=== PATIENT | male | born 1960 ===

== ENCOUNTER 2020-05-17 06:48 | Outpatient (REF) | payer MEDICAID, SELFPAY ==
--- NOTE | 2020-05-17 06:58 | XR_ITS ---
EXAMINATION: XR LUMBOSACRAL SPINE CLINICAL INFORMATION: Dorsalgia. COMPARISON: None TECHNIQUE: Three views of the lumbosacral spine. FINDINGS: There is normal lumbar segmentation with 5 nonrib-bearing lumbar vertebrae of normal height and normal lumbar lordosis. There is no lumbar vertebral compression, spondylolisthesis, destructive process. There are multilevel degenerative disc changes throughout the lower thoracic and lumbar spine. Disc narrowing is greatest at L3-L4 and L4-L5 along with endplate sclerosis and vertebral spurring, but involves all levels. There are anterior bridging osteophytes at multiple levels and some scattered lateral bridging osteophytes. There is variable facet degeneration, greatest L4-S1. The SI joints and visualized sacrum are unremarkable. XR/XR lumbar spine 2-3V IMPRESSION: 1. Diffuse multilevel degenerative disc and degenerative facet changes. 2. No lumbar vertebral compression, spondylolisthesis, destructive process.
== END 2020-05-17 06:49 | disposition home or self-care (01) ==
LOC: HO.XRAY 06:48
PROVIDERS: Visit Provider Internal Medicine
DX: M54.89 Other dorsalgia (principal)
CPT/HCPCS: 72100

== ENCOUNTER 2020-05-19 07:47 | Outpatient (REF) | payer MEDICAID, SELFPAY ==
[2020-05-19 08:25] LABS: Hematocrit 47.6 % (42-52); Hemoglobin 15.8 g/dl (14.0-18.0); Mean Corpuscular HGB Conc 33.2 g/dl (31.0-36.0); Mean Corpuscular Hemoglobin 29.4 pg (27.0-33.0); Mean Corpuscular Volume 88.5 fL (80-98); Mean Platelet Volume 10.8 fL (9.4-12.4); Platelet Count 196 X10*3/uL (160-400); Red Blood Count 5.38 X10*6/uL (4.60-5.80); Red Cell Distribution Width 13.1 % (11.0-16.0); White Blood Count 7.9 X10*3/uL (4.8-10.8)
[2020-05-19 08:58] LABS: Alanine Aminotransferase 19 U/L (0-40); Albumin Level 4.5 g/dL (3.5-5.0); Alkaline Phosphatase 69 U/L (39-117); Anion Gap 11 (12-20); Aspartate Amino Transferase 17 U/L (5-37); Bilirubin Total 0.5 mg/dL (0.0-1.0); Blood Urea Nitrogen 12 mg/dL (9-16); Calcium 8.5 mg/dL (8.4-10.2); Carbon Dioxide 30 mmol/L (22-29); Chloride 102 mmol/L (96-108); Cholesterol 223 mg/dL; Estimated Glomerular Filt Rate > 60; Glucose Fasting 98 mg/dL (60-99); HDL Cholesterol 68 mg/dL; LDL Cholesterol Calculated 143 mg/dl; Potassium 4.8 mmol/l (3.3-5.1); Sodium 138 mmol/L (135-145); Triglycerides 60 mg/dL
[2020-05-19 09:20] LABS: Prostate Specific Antigen 1.29 ng/mL (<0.05-4.0)
== END 2020-05-19 07:48 | disposition home or self-care (01) ==
LOC: HO.LAB 07:47
PROVIDERS: PCP Internal Medicine; Visit Provider Internal Medicine
DX: I86.4 Gastric varices (principal); K64.4 Residual hemorrhoidal skin tags; Z87.891 Personal history of nicotine dependence
CPT/HCPCS: 36415; 80053; 80061; 84153; 85027

== ENCOUNTER 2020-10-04 12:42 | Outpatient (REF) | payer MEDICAID, SELFPAY ==
--- NOTE | ~2020-10-04 | US_ITS ---
EXAMINATION: US SCROTUM CLINICAL INFORMATION: Scrotal varices. Cyst of epididymis. Right testicular pain. Left orchiectomy COMPARISON: Scrotal ultrasound 01/17/2016 and 04/29/2013. TECHNIQUE: A sonogram of the scrotum was performed assessing prince-scale appearance and color Doppler flow. Spectral Doppler analysis of the arterial and venous flow were performed in the testes bilaterally. FINDINGS: RIGHT: Right testicle measures 4.8 x 2.3 x 3.6 cm, volume 20.2 mL. There is a small anechoic cyst in lower pole right testes measuring 0.2 x 0.3 x 0.2 cm. No focal testicular parenchymal lesions are visualized. Spectral Doppler analysis of the arterial and venous flow is normal in the right testis. Right epididymal head is normal. There are 2 anechoic cysts epididymal cyst seen. The measured 2.5 x 2.5 x 2.6 cm and appears slightly echogenic, complex. A smaller cyst measures 1.4 x 2.0 x 1.7 cm. No right hydrocele or varicocele is seen. Right epididymal Doppler flow is normal. US/US scrotum IMPRESSION: Status post left orchiectomy. Small cyst lower pole right testicle. Two right epididymal cysts.
== END 2020-10-04 12:43 | disposition home or self-care (01) ==
LOC: HO.US 12:42
PROVIDERS: PCP Internal Medicine; Visit Provider Internal Medicine
DX: I86.1 Scrotal varices (principal); N50.3 Cyst of epididymis; N50.811 Right testicular pain
CPT/HCPCS: 76870

== ENCOUNTER → 2020-10-24 12:38 | Outpatient (BNVA) | payer MEDICAID, SELFPAY | PROVIDERS: PCP Internal Medicine; Visit Provider Physician Assistant ==

== ENCOUNTER 2020-11-19 12:01 | Day surgery (SDC) | payer MEDICAID, SELFPAY ==
--- NOTE | 2020-11-15 13:30 | P.CONAN_ITS ---
Documented by User: Umu Reid 11/15/20 13:31 HPI - Anesthesia Eval Consult details Narrative: 60yo M for Upper Endoscopy and Colonoscopy [facility] Active Problems Active Problems: All Active Problems (Updated 10/24/20 @ 14:26 by Zina Levi PA-C) Acid reflux (Acute) Hemorrhoids (Acute) Encounter for screening colonoscopy (Acute) Past Medical History Medical History Acid reflux Surgical History Surgical History History of testicular surgery Hx of removal of testicle Hx of varicose vein ligation Social History Social History Household Members: Family Alcohol intake: never Smoking Status: Former smoker Years Smoked: 30 Smoking Quit Date: month and a half ago Use of substances other than those prescribed or required for medical reasons: No Are you DNR?: No Recently lost weight without trying: No Meds Allergies Allergy/AdvReac Type Severity Reaction Status Date / Time No Known Allergies Allergy Verified 10/24/20 12:39 Home Medications Medication Instructions Recorded Confirmed Last Taken Type omeprazole 20 mg capsule,delayed 20 mg PO DAILY cap 10/24/20 Unknown History release Exam Exam Date and Time: November 15, 2020 1330 Assessment and Plan Assessment Anesthesia Assessment: Chart Reviewed Documented by User: Sabrina Hudson 11/19/20 10:47 [facility] Past Medical History Medical History Acid reflux Family History Family history of problems with anesthesia: No Surgical History Surgical History History of testicular surgery Hx of removal of testicle Hx of varicose vein ligation History of Problems with Anesthesia: No Social History Social History Household Members: Family Alcohol intake: never Smoking Status: Former smoker Years Smoked: 30 Smoking Quit Date: month and a half ago Use of substances other than those prescribed or required for medical reasons: No Are you DNR?: No Recently lost weight without trying: No Meds Allergies Allergy/AdvReac Type Severity Reaction Status Date / Time No Known Allergies Allergy Verified 10/24/20 12:39 Home Medications Medication Instructions Recorded Confirmed Last Taken Type omeprazole 20 mg capsule,delayed 20 mg PO DAILY cap 10/24/20 Unknown History release Exam Height,Weight and Vital Signs: Vital Signs Temp Pulse Resp BP Pulse Ox 97.5 F 65 16 136/84 98 11/19/20 09:38 11/19/20 09:38 11/19/20 09:38 11/19/20 09:38 11/19/20 09:38 Airway Mallampati Class: III TM Dist: >3cm Neck ROM: Full Partial: Upper Loose/Missing/Broken Teeth: Yes Heart: RRR Lungs: CTAB Assessment and Plan Assessment Anesthesia Assessment: Anesthesia Plan Discussed and Chart Reviewed Final Anesthetic Review NPO: Yes ASA Class: II Final Preanesthetic Review: No Changes in Pt Med Stat, Meds/Allgs Chart Reviewed, Consent Obtained/Reviewed and Anes Risks/Benef Reviewed Patient Risk: Low Procedure Risk: Low Assessment/Block/Sedation in SS: Assess/Block/Sedation-SS Anesthetic Plan Anesthetic Plan: MAC: Disposition: Standard PACU
[2020-11-19 09:38] VITALS: BP 136/84; PULSE 65; RESP 16; TEMP 36.4; O2SAT 98; BMI 32.4
[2020-11-19] MEDS: Lactated Ringers 1,000 ML 100 ML IVCONT (09:54)
--- NOTE | 2020-11-19 10:05 | MHC.SHP ---
Pre-Procedural Eval Section B Chief Complaint: Screening, Acid Reflux Relevant Family History (Specify if Yes): No Relevant Social History: None (ex smoker) Present Medications: see Short Stay Collaborative assessment Medical History: Significant History (gerd) History of Previous Operations: Relevant previous surgery/procedure and date(s) (History of testicular surgery Hx of removal of testicle Hx of varicose vein ligation) Allergies: Allergies Allergy/AdvReac Type Severity Reaction Status Date / Time No Known Allergies Allergy Verified 10/24/20 12:39 Review of Systems Sugical H&P ROS: Negative: Constitution, Cardiovascular, Respiratory, Neurological, Psychiatric, Hem-Onc, Allergic/Immunologic, Gastrointestinal, Genitourinary, Musculoskeletal, Integumentary, Endocrine and Eyes/Ears/Nose/Throat Exam Surgical H&P Exam: Normal: HEENT, Normal: Heart, Normal: Lungs, Normal: Extremities, Normal: Abdomen, Normal: Skin and Normal: Neurological Plan Diagnosis/Plan: Unchanged I have reviewed the history and physical and performed a pertinent physical examination on my patient. No changes have occurred unless specified.
--- NOTE | 2020-11-19 10:06 | PM.OP ---
Brief Operative Note Date of Service: 11/19/20 Pre-op diagnosis: GERD, colo screen Post-op diagnosis: same Procedure: see op note Surgeon: John Hunt MD Anesthesia: MAC Was an Production Drilling Machine Operator used for this Procedure?: No Estimated blood loss (mL): 0 Condition: stable Disposition: PACU
--- NOTE | 2020-11-19 10:06 | W.PM.OPN ---
Operative Note Operative Note Date of Service: 11/19/20 Narrative: Operative Information Procedure Description: EGD, Colonoscopy FLEXIBLE TRANSORAL UPPER GASTROINTESTINAL ENDOSCOPY AND COLONOSCOPY PROCEDURE NOTE UPPER ENDOSCOPY Consent: Indications for the procedure and potential complications of bleeding, perforation, reaction to medications and missed diagnosis were discussed with the patient and informed consent was obtained. Instrument: Olympus GIF H 190 J mid size upper endoscope Monitoring: Vital signs and clinical assessment, continuous EKG monitoring, Pulse oximetry, Carbon Dioxide monitoring and blood pressure monitoring were done throughout the procedure. Procedure: The patient was placed in the left lateral decubitis position and pre-procedure medications were administered and a bite block was placed. The endoscope was inserted into the mouth and advanced under direct vision to the third part of duodenum. A careful inspection was made as the upper endoscope was withdrawn including a retroflexed examination of the proximal stomach; Findings and interventions are described below. Findings: Larynx:normal Esophagus: GE junction at 35 cm, diaphragm hiatus at 39 cm, 4 cm sliding hiatal hernia noted. La grade B esophagitis with erosion noted, as well as ridging and furrowing of esophagus, random esophageal bx taken as well as from GEJ Stomach: Patchy erythema. Biopsies were obtained. Grade 2 flap valve on retroflexed examination of the cardia. Duodenum: bulbar duodenitis, noted Intervention: Biopsies as noted above COLONOSCOPY Instrument: Olympus variable stiffness pediatric scope 190L Colonoscopy Monitoring: Vital signs and clinical assessment, continuous EKG monitoring, Pulse oximetry, Carbon Dioxide monitoring and blood pressure monitoring were done throughout the procedure. Colon withdrawal time was 12 minutes. Procedure: The patient was placed in the left lateral decubitis position and pre-procedure medications were administered. After a digital rectal examination of the ano-rectum, the video colonoscope was inserted into the rectum and advanced through the colon to the cecum/TI. The colonoscope was slowly withdrawn in a retrograde panoramic fashion and the colon mucosa was carefully examined including a retroflexed view of the rectum. Findings and interventions are described below. Procedure Difficulty:easy Findings: Terminal Ileum-normal Cecum:normal Ascending Colon: 6-8 mm sessile polyp removed with forceps Transverse Colon - 10 mm sessile polyp removed with cold snare Descending Colon:normal Sigmoid Colon: few small diverticula seen Rectum: Retroflexion with moderate sized internal hemorrhoids, grade II--8-10 mm sessile polyp removed with cold snare Anorectum - internal hemorrhoids seen at anal verge Colon preparation: [place] Bowel Preparation Scale Right colon; 2 Transverse colon: 2 Left colon; 2 (0 = Unprepared colon segment with mucosa not seen due to solid stool that cannot be cleared. 1 = Portion of mucosa of the colon segment seen, but other areas of the colon segment not well seen due to staining, residual stool and/or opaque liquid. 2 = Minor amount of residual staining, small fragments of stool and/or opaque liquid, but mucosa of colon segment seen well. 3 = Entire mucosa of colon segment seen well with no residual staining, small fragments of stool or opaque liquid) Impression and Post Procedure Diagnosis: Endoscopy Findings: hiatal hernia esophagitis gastritis duodenitis Colonoscopy Findings: polyps internal hemorrhoids diverticular disease Plan: Await Pathology results Repeat Colonoscopy in 5 years or earlier if clinically indicated High fiber diet leaflet avoid straining at stool, epsom salts and sitz bath, anusol supps or cream prn reflux precautions, check compliance with PPI Above findings were reviewed with the patient and relevant handouts were provided if indicated.
[2020-11-19 10:39] VITALS: BP 98/62; PULSE 93; RESP 12; TEMP 36.2; O2SAT 97
[2020-11-19 10:54] VITALS: BP 109/64; PULSE 88; RESP 18; O2SAT 98
== END 2020-11-19 12:07 | disposition home or self-care (01) ==
LOC: HO.SSS 12:02
PROVIDERS: PCP Internal Medicine; Visit Provider Internal Medicine Gastroenterology
PROC: (CPT 45385; principal; 2020-11-19 09:50)
DX: Z12.11 Encounter for screening for malignant neoplasm of colon (principal); D12.2 Benign neoplasm of ascending colon; D12.3 Benign neoplasm of transverse colon; D12.8 Benign neoplasm of rectum; K57.30 Diverticulosis of large intestine without perforation or abscess without bleeding; K64.1 Second degree hemorrhoids; K21.9 Gastro-esophageal reflux disease without esophagitis; K29.50 Unspecified chronic gastritis without bleeding; K20.80 Other esophagitis without bleeding; K29.80 Duodenitis without bleeding; K44.9 Diaphragmatic hernia without obstruction or gangrene
CPT/HCPCS: 45385; 45380; 43239; 88305; 88342

== ENCOUNTER 2021-01-30 09:40 | Outpatient (REF) | payer MEDICAID, SELFPAY ==
--- NOTE | ~2021-01-30 | XR_ITS ---
EXAMINATION: XR KNEE, LEFT CLINICAL INFORMATION: Unspecified injury left lower leg COMPARISON: None TECHNIQUE: AP and lateral views of the left knee. FINDINGS: There is no fracture dislocation or destructive process. No significant joint narrowing. No erosive change or chondrocalcinosis. The suprapatellar bursa is 4 mm, within normal. Hoffa's fat pad appears normal and the deep infrapatellar recess is preserved. There is spurring at the extensor mechanism, and insertion quadriceps and origin and insertion of patellar tendon. XR/XR knee LT 2V IMPRESSION: 1. Spurring quadriceps insertion patella and origin and insertion patella tendon. 2. No knee joint compartment narrowing or erosive change.
== END 2021-01-30 09:41 | disposition home or self-care (01) ==
LOC: HO.XRAY 09:40
PROVIDERS: Absent Provider Internal Medicine; PCP Internal Medicine; Visit Provider Emergency Medicine
DX: S89.92XA Unspecified injury of left lower leg, initial encounter (principal)
CPT/HCPCS: 73560

== ENCOUNTER 2021-02-07 05:29 | Outpatient (REF) | payer MEDICAID, SELFPAY ==
--- NOTE | ~2021-02-07 | XR_ITS ---
EXAMINATION: XR KNEES STANDING AP XR KNEE, LEFT CLINICAL INFORMATION: Knee pain COMPARISON: Radiographs left knee 01/30/2021, right knee 04/29/2013 TECHNIQUE: Standing AP view of both knees is performed. Axial patellar view of the left knee is also performed. FINDINGS: Left: There is mild narrowing medial knee joint compartment. No erosive change or chondrocalcinosis. There is normal bony mineralization. No destructive process. Axial view patella shows mild narrowing lateral patellofemoral joint with lateral patellar spurring and mild lateral tilting patella. Right: There is moderate narrowing medial knee joint compartment with associated marginal osteophytes from the medial femoral condyle and medial tibial plateau. No erosive change or chondrocalcinosis. No destructive process. There is again spurring from the medial femoral condyle in region of origin medial collateral ligament which may related to old MCL injury (Blaire striata). XR/XR knee standing BI IMPRESSION: 1. Narrowing medial knee joint compartments, greater on right. 2. Narrowing left lateral patellofemoral joint with mild lateral tilting. 3. Old spurring right medial femoral condyle in region of proximal MCL (Blaire striata).
--- NOTE | ~2021-02-07 | XR_ITS ---
EXAMINATION: XR KNEES STANDING AP XR KNEE, LEFT CLINICAL INFORMATION: Knee pain COMPARISON: Radiographs left knee 01/30/2021, right knee 04/29/2013 TECHNIQUE: Standing AP view of both knees is performed. Axial patellar view of the left knee is also performed. FINDINGS: Left: There is mild narrowing medial knee joint compartment. No erosive change or chondrocalcinosis. There is normal bony mineralization. No destructive process. Axial view patella shows mild narrowing lateral patellofemoral joint with lateral patellar spurring and mild lateral tilting patella. Right: There is moderate narrowing medial knee joint compartment with associated marginal osteophytes from the medial femoral condyle and medial tibial plateau. No erosive change or chondrocalcinosis. No destructive process. There is again spurring from the medial femoral condyle in region of origin medial collateral ligament which may related to old MCL injury (Blaire striata). XR/XR knee LT 2V IMPRESSION: 1. Narrowing medial knee joint compartments, greater on right. 2. Narrowing left lateral patellofemoral joint with mild lateral tilting. 3. Old spurring right medial femoral condyle in region of proximal MCL (Blaire striata).
== END 2021-02-07 05:30 | disposition home or self-care (01) ==
LOC: HO.HOSX 05:29
PROVIDERS: Visit Provider Physician Assistant
DX: M17.12 Unilateral primary osteoarthritis, left knee (principal)
CPT/HCPCS: 20610; 73560; 73565; 99202; J1040

== ENCOUNTER → 2021-09-16 12:47 | Outpatient (BNVA) | payer MEDICAID, SELFPAY | PROVIDERS: Visit Provider Physician Assistant | DX: M17.0 Bilateral primary osteoarthritis of knee (principal) | CPT/HCPCS: 20610; 99212; J1040 ==

== ENCOUNTER 2021-10-04 08:53 | Outpatient (REF) | payer MEDICAID, SELFPAY ==
--- NOTE | 2021-10-04 | PFT_ITS ---
FLOWS: FEV1 110% of predicted at 3.73 L. FVC 92% of predicted at 4.02 L. FEV1 to FVC ratio of 0.93. LUNG VOLUMES: Total lung capacity 95% of predicted at 6.38 L. Residual volume 100% of predicted at 2.13 L. Slow vital capacity 93% of predicted at 4.15 L. Expiratory reserve volume 28% of predicted at 0.36 L. Diffusion capacity is normal. IMPRESSION: No obstructive or restrictive ventilatory defect. No bronchodilator response. Decreased expiratory reserve volume suggests extrathoracic restriction, likely secondary to abdominal obesity. Steve Da Silva MD AP/MODL / [id number]
== END 2021-10-04 08:54 | disposition home or self-care (01) ==
LOC: HO.RESP 08:53
PROVIDERS: PCP Internal Medicine; Visit Provider Internal Medicine
DX: R06.02 Shortness of breath (principal); Z87.891 Personal history of nicotine dependence
CPT/HCPCS: 94060; 94727; 94729

== ENCOUNTER 2022-12-25 13:34 | Outpatient (REF) | payer MEDICAID, SELFPAY ==
--- NOTE | ~2022-12-25 | CT_ITS ---
EXAMINATION: CT ABDOMEN AND PELVIS WITH CONTRAST CLINICAL INFORMATION: Appendicitis COMPARISON: None available. TECHNIQUE: Multidetector volumetric images were obtained from the superior aspect of the liver through the pubic symphysis following administration 85 mL of Omnipaque 350 intravenous contrast. Sagittal and coronal reformatted images were obtained on the technologist's workstation. Oral contrast: No This CT examination was performed using dose optimization techniques as appropriate, variously including the following: *Automated exposure control *Adjustment of mA and/or kV according to patient size (this includes techniques or standardized protocols for targeted exams where dose is matched to indication/reason for exam; i.e. extremities or head) *Use of iterative reconstruction technique DLP: 624 mGy-cm FINDINGS: LUNG BASES: The visualized lung bases are unremarkable. LIVER, GALLBLADDER, AND BILIARY TREE: The liver is enlarged at 20.2 cm in cephalocaudad dimension with decreased attenuation consistent with hepatic steatosis. No focal hepatic lesion or biliary ductal dilatation is present. The gallbladder is unremarkable with no evidence of radiopaque gallstones, gallbladder wall thickening, or obvious pericholecystic inflammatory changes. PANCREAS: Unremarkable. SPLEEN: Unremarkable. ADRENAL GLANDS: Unremarkable. KIDNEYS AND URETERS: The kidneys are normal in size, shape, and attenuation. No hydronephrosis, hydroureter, or calculi seen. No perinephric stranding. BLADDER: Unremarkable. GASTROINTESTINAL TRACT: The small and large bowel are unremarkable aside from mild colonic diverticulosis without diverticulitis. The appendix is unremarkable and there is no evidence of appendicitis. ABDOMINAL WALL: There are bilateral inguinal hernias seen containing fat, right greater than left. LYMPH NODES: No retroperitoneal lymphadenopathy. VASCULAR: Minimal calcific atherosclerotic plaque without aneurysm. PELVIC VISCERA: The prostate and seminal vesicles are unremarkable. OSSEOUS STRUCTURES: Marked degenerative changes present in the lumbar spine from L2 through L5. No bony destructive lesions. CT/CT abdomen pelvis w IV con IMPRESSION: 1. A cause for the patient's right lower quadrant pain has not been found. The appendix is normal. 2. Incidental note made of enlarged fatty liver, colonic diverticulosis without diverticulitis and degenerative changes in the spine. Fleischner guidelines were followed.
[2022-12-25] MEDS: iohexoL 350 MG/ML 100 ML INFUS..BTL 85 ML IV (16:34)
[2022-12-25] MEDS: Barium Sulfate Oral (Berry) 450 ML ORAL.SUSP 900 ML PO (16:34)
== END 2022-12-25 13:35 | disposition home or self-care (01) ==
LOC: HO.CT 13:34
PROVIDERS: PCP Internal Medicine; Visit Provider Internal Medicine
DX: R19.09 Other intra-abdominal and pelvic swelling, mass and lump (principal)
CPT/HCPCS: 74177; Q9967

== ENCOUNTER 2023-01-16 07:24 | Emergency (ER) | payer MEDICAID, SELFPAY ==
[2023-01-16 07:27] VITALS: BP 140/80; PULSE 66; RESP 18; TEMP 36.5; O2SAT 97; BMI 36.0
--- NOTE | 2023-01-16 07:44 | ED.MALEGU ---
HPI - Male Genitourinary General Chief complaint: Urogenital-Male Stated complaint: pain in groin area Time Seen by Provider: 01/16/23 07:31 History of Present Illness HPI Narrative: Patient is a 62-year-old male with a history of testicular pain. Had a history of testicular torsion in [place]. Had surgery approximately 15 years ago the left testicle was removed. Patient is complaining of pain to the right testicle 4 months. Mag any better. Positive history of having hernia on that side. Patient denies any history of diabetes. Positive history of hypertension. No fever no chills no systemic complaints. Sexually active 1 partner. Not circumcised. No pain on urination. Patient is presenting ED for further evaluation. Patient already has had scheduled an appointment with surgery for possible inguinal hernia. He denies any nausea vomiting. No systemic complaints. Related Data Home Medications Medication Instructions Recorded Confirmed omeprazole 20 mg capsule,delayed 20 mg PO DAILY 10/24/20 release Previous Rx's Medication Instructions Recorded bisacodyl 5 mg tablet,delayed 10 mg PO ONCE colonoscopy prep 1 10/24/20 release (Dulcolax (bisacodyl)) day #2 tabs polyethylene glycol 3350 17 238 g PO ONCE 1 day #238 grams 10/24/20 gram/dose oral powder (Miralax) ibuprofen 800 mg tablet 800 mg PO Q8H PRN pain 30 days #90 02/07/21 tabs sulfamethoxazole 800 1 tab PO BID 14 days #28 tabs 01/16/23 mg-trimethoprim 160 mg tablet (Bactrim DS) Allergies Allergy/AdvReac Type Severity Reaction Status Date / Time No Known Allergies Allergy Verified 01/16/23 07:27 Review of Systems Review of Systems: No nausea no vomiting no systemic complaints Yes all other systems are reviewed and are negative [facility] Past Medical History Attestation statement: The following information was validated with the patient. Medical History Acid reflux Surgical History History of testicular surgery Hx of removal of testicle Hx of varicose vein ligation Social History Social History Household Members: Family Alcohol intake: never Years Smoked: 30 Advance Directives: No Current occupational status: disabled Current occupation: rt hand Physical Exam Vital Signs: Vital Signs: Last Vital Signs Temp 98.7 F 01/16/23 09:13 Pulse 52 01/16/23 09:13 Resp 16 01/16/23 09:13 BP 100/64 01/16/23 09:13 Pulse Ox 97 01/16/23 09:13 O2 Del Method Room Air 01/16/23 09:13 BMI result Body Mass Index 36.0 Appearance: Alert. Oriented X3. No acute distress. Eyes: Pupils equal, round and reactive to light. ENT: Pharynx normal. Neck: Normal inspection. Neck supple. No lymph nodes noted. No crepitus CVS: Normal heart rate and rhythm. Pulses normal. Normal S1 and S2 Respiratory: No respiratory distress. Breath sounds normal. No Wheezing. No rales Abdomen: Soft and nontender. No rigidity. No distention. good BS x4 Examination genitalia there is no gross tenderness on palpation of the right testicle. Cremasteric reflex intact. Positive inguinal hernia that was clearly reducible noted. No discharge on stripping of the penis Skin: Skin warm and dry. Normal skin color. Normal skin turgor. Extremities: No lower extremity edema. Neurovascular intact to all extremities. No Lacerations. No Rash Neuro: Oriented X 3. No motor deficit. No sensory deficit. Moving all extermities. No slurred speech Medications Administered Discontinued Medications Generic Name Dose Route Start Last Admin Trade Name Freq PRN Reason Stop Dose Admin Ibuprofen 400 mg 01/16/23 07:46 01/16/23 08:00 Ibuprofen 400 Mg Tablet PO 01/16/23 07:47 400 mg ONCE ONE Administration Medical Decision Making Medical Decision Making [facility] Narrative: Patient there. No acute distress. No nausea no vomiting. Hernia was clearly reducible. No signs of strangulated hernia. Patient has testicular pain. Ultrasound showed no evidence of torsion. There is a small cyst noted. Patient will require follow-up on an outpatient basis with Urology. Will start patient on antibiotics for possible orchitis. Patient is sexually active with 1 partner. Over the age of 45 less likely to be secondary to STD. Nevertheless GC chlamydia was sent. Will start patient on Bactrim. Differential Diagnosis Differential Diagnoses: The differential diagnosis associated with the presentation includes Testicular pain, hernia, torsion, orchitis Lab Data [facility] Lab Attestation statement: I reviewed the patient's lab results. 01/16/23 07:57 01/16/23 07:57 Labs: Lab Results 01/16/23 01/16/23 01/16/23 Range/Units 07:57 07:57 07:57 WBC 9.2 (4.8-10.8) X10*3/uL RBC 5.25 (4.60-5.80) X10*6/uL Hgb 15.2 (14.0-18.0) g/dl Hct 45.4 (42.0-52.0) % MCV 86.5 (80.0-98.0) fL MCH 29.0 (27.0-33.0) pg MCHC 33.5 (31.0-36.0) g/dl RDW 13.2 (11.0-16.0) % Plt Count 168 (160-400) X10*3/uL MPV 10.3 (9.4-12.4) fL Immature Gran % (Auto) 0.3 (0.0-0.4) % Neut % (Auto) 54.3 (45-73) % Lymph % (Auto) 38.1 (20-40) % [place] % (Auto) 4.9 (2-11) % Eos % (Auto) 1.7 (0-4) % Baso % (Auto) 0.7 (0-2) % Lymph # (Auto) 3.5 (1.2-4.9) X10*3/uL [place] # (Auto) 0.5 (0.1-1.2) X10*3/uL Eos # (Auto) 0.2 (0.0-0.4) X10*3/uL Baso # (Auto) 0.1 (0.0-0.2) X10*3/uL Abs Immat Gran (auto) 0.03 (0.00-0.03) X10*3/uL Absolute Neuts (auto) 5.0 (2.0-8.3) x10*3/uL Absolute Nucleated RBC 0.000 (0.0-0.012) X10*3/uL Nucleated RBC % (auto) 0.0 (0.0-0.2) /100WBC Sodium 140 (135-145) mmol/L Potassium 4.4 (3.3-5.1) mmol/L Chloride 107 (96-108) mmol/L Carbon Dioxide 24 (22-29) mmol/L Anion Gap 13 (12-20) BUN 16 (9-16) mg/dL Creatinine 1.22 (0.5-1.4) mg/dL Estim Creat Clear Calc 75.5 Estimated GFR > 60 Random Glucose 121 H (60-115) mg/dL Calcium 9.6 D (8.4-10.2) mg/dL Urine Color Yellow Urine Appearance Clear Urine pH 5.5 (5.0-9.0) Ur Specific [place] 1.020 (1.005-1.025) Urine Protein Negative (Neg-Trace) mg/dL Urine Glucose (UA) Negative (Negative) mg/dL Urine Ketones Negative (Negative) mg/dL Urine Blood Negative (Negative) Urine Nitrite Negative (Negative) Ur Leukocyte Esterase Negative (Negative) Urine RBC 0-2 (0-2) /HPF Urine WBC 0-5 (0-5) /HPF Ur Squamous Epith Cells 0-2 (0-2) /HPF Urine Bacteria None Seen (None Seen) Hyaline Casts 0-2 (0-2) /LPF Chlam trachomat DNA PCR (Not Detect.) N.gonorrhoeae DNA (PCR) (Not Detect.) 01/16/23 Range/Units 07:57 WBC (4.8-10.8) X10*3/uL RBC (4.60-5.80) X10*6/uL Hgb (14.0-18.0) g/dl Hct (42.0-52.0) % MCV (80.0-98.0) fL MCH (27.0-33.0) pg MCHC (31.0-36.0) g/dl RDW (11.0-16.0) % Plt Count (160-400) X10*3/uL MPV (9.4-12.4) fL Immature Gran % (Auto) (0.0-0.4) % Neut % (Auto) (45-73) % Lymph % (Auto) (20-40) % [place] % (Auto) (2-11) % Eos % (Auto) (0-4) % Baso % (Auto) (0-2) % Lymph # (Auto) (1.2-4.9) X10*3/uL [place] # (Auto) (0.1-1.2) X10*3/uL Eos # (Auto) (0.0-0.4) X10*3/uL Baso # (Auto) (0.0-0.2) X10*3/uL Abs Immat Gran (auto) (0.00-0.03) X10*3/uL Absolute Neuts (auto) (2.0-8.3) x10*3/uL Absolute Nucleated RBC (0.0-0.012) X10*3/uL Nucleated RBC % (auto) (0.0-0.2) /100WBC Sodium (135-145) mmol/L Potassium (3.3-5.1) mmol/L Chloride (96-108) mmol/L Carbon Dioxide (22-29) mmol/L Anion Gap (12-20) BUN (9-16) mg/dL Creatinine (0.5-1.4) mg/dL Estim Creat Clear Calc Estimated GFR Random Glucose (60-115) mg/dL Calcium (8.4-10.2) mg/dL Urine Color Urine Appearance Urine pH (5.0-9.0) Ur Specific [place] (1.005-1.025) Urine Protein (Neg-Trace) mg/dL Urine Glucose (UA) (Negative) mg/dL Urine Ketones (Negative) mg/dL Urine Blood (Negative) Urine Nitrite (Negative) Ur Leukocyte Esterase (Negative) Urine RBC (0-2) /HPF Urine WBC (0-5) /HPF Ur Squamous Epith Cells (0-2) /HPF Urine Bacteria (None Seen) Hyaline Casts (0-2) /LPF Chlam trachomat DNA PCR NOT DETECTED (Not Detect.) N.gonorrhoeae DNA (PCR) NOT DETECTED (Not Detect.) Radiology Impression Discussion of test interpretation with radiology: I have reviewed the radiologist's reading. Discharge Plan Discharge Clinical Impression: Pain in testicle, Epididymitis Patient Disposition: Home, Self-Care Instructions: Epididymo-Orchitis (ED), Inguinal Hernia (ED), Testicle Pain (ED) Prescriptions: New sulfamethoxazole-trimethoprim [Bactrim DS] 800-160 mg tablet 1 tab PO BID 14 Days Qty: 28 0RF No Action ibuprofen 800 mg tablet 800 mg PO Q8H PRN (Reason: pain) 30 Days Qty: 90 3RF omeprazole 20 mg capsule,delayed release(DR/EC) 20 mg PO DAILY bisacodyl [Dulcolax (bisacodyl)] 5 mg tablet,delayed release (DR/EC) 10 mg PO ONCE 1 Days Qty: 2 0RF Rx Instructions: Take 2 tablets by mouth at 12:00pm the day before your procedure. polyethylene glycol 3350 [Miralax] 17 gram/dose powder 238 g PO ONCE 1 Days Qty: 238 0RF Rx Instructions: Take as directed by mouth the day before your procedure. Referrals: Jenniffer Bland MD [Physician] - Pérez Crooks MD [Physician] - 01/23/23
[2023-01-16] MEDS: Ibuprofen 400 MG TABLET PO (08:00)
--- NOTE | 2023-01-16 08:04 | PC.NURSE ---
able to obtain urine sample, labs drawn and sent off. awaiting ultrasound at this time. call day within reach.
[2023-01-16 08:24] LABS: Anion Gap 13 (12-20); Blood Urea Nitrogen 16 mg/dL (9-16); Calcium 9.6 mg/dL (8.4-10.2); Carbon Dioxide 24 mmol/L (22-29); Chloride 107 mmol/L (96-108); Creatinine Clr Calc Pharmacy 75.5; Estimated Glomerular Filt Rate > 60; Glucose Random 121 mg/dL (60-115); Potassium 4.4 mmol/L (3.3-5.1); Sodium 140 mmol/L (135-145)
--- NOTE | 2023-01-16 08:46 | PC.NURSE ---
ultrasound at bedside
[2023-01-16 09:13] VITALS: BP 100/64; PULSE 52; RESP 16; TEMP 37.1; O2SAT 97
== END 2023-01-16 11:26 | disposition home or self-care (01) ==
PROVIDERS: Emergency Provider Emergency Medicine Emergency Medical Services; PCP Internal Medicine
DX: R10.30 Lower abdominal pain, unspecified (principal); N50.812 Left testicular pain; N50.811 Right testicular pain; N45.1 Epididymitis; Z79.899 Other long term (current) drug therapy
CPT/HCPCS: 0353U; 36415; 80048; 81001; 85025; 93975; 99284

== ENCOUNTER 2023-01-22 14:30 | Outpatient (AMB) | payer MEDICAID, SELFPAY ==
[2023-01-22 14:31] VITALS: BP 104/67; PULSE 65; BMI 36.0
--- NOTE | 2023-01-22 14:31 | A.OFFVIS_ITS ---
Intake Vital Signs 01/22/23 14:31 Height 5 ft 8 in Weight 237 lb BMI 36.0 BP 104/67 Blood Pressure Location Lt brachial Position Sitting Pulse 65 Intake Visit Reasons: inguinal hernia Intake Note: This patient presents for an assessment for an inguinal hernia. Patient c/o; right groin, denies pain, denies problems with bowel movements. [employer] Wireless Manager Required: Yes [employer] Wireless Manager Language: General Repairer Name: Patient declined cable armorer Accompanied by: Brother Allergies No Known Allergies Allergy (Verified 01/22/23 14:40) Medication List - Last Reconciled 01/22/23 by Pérez Crooks MD bisacodyl (Dulcolax (bisacodyl)) 10 mg (2 x 5 mg) PO ONCE 1 day cholecalciferol (vitamin D3) 50 mcg PO DAILY ibuprofen 800 mg PO Q8H PRN 30 days losartan 50 mg PO DAILY omeprazole 20 mg PO DAILY polyethylene glycol 3350 (Miralax) 238 grams PO ONCE 1 day sulfamethoxazole-trimethoprim 800-160 mg (Bactrim DS) 1 tab PO BID 14 days HPI inguinal hernia HPI Details 63-year-old male referred for right inguinal hernia. He describes having this palpable reducible mass on the right groin. He says he 1st noticed this about 3 months ago. He says that he had discomfort and pain around that time but this symptoms seem to have improved significantly. He does state that the lump seems to be bigger with exertion. He has chronic back pain and has been on disability but he remains very active otherwise. He has been recently diagnosed to have diabetes. He says his blood sugars are well controlled. [facility] Medical History (Updated 01/22/23 @ 15:01 by Pérez Crooks MD) Acid reflux Chronic back pain Diabetes mellitus Hypertension Right inguinal hernia Surgical History History of testicular surgery Hx of removal of testicle Hx of varicose vein ligation Social History Household Members: Family Alcohol intake: never Years Smoked: 30 Current occupational status: disabled Current occupation: rt hand Review of Systems Const Denies chills and Denies fever(s) Card Denies chest pain, Denies dyspnea and Denies dyspnea on exertion Resp Denies cough, Denies dyspnea and Denies dyspnea on exertion GI Denies hematochezia and Denies change in bowel habits Denies hematuria and Denies difficulty urinating Musc Reports back pain and Denies limited range of motion Neuro Denies focal weakness and Denies convulsions Psych Denies depression and Denies mood swings Physical Exam Vital Signs: Last Vital Signs Pulse 65 01/22/23 14:31 BP 104/67 01/22/23 14:31 BMI result Body Mass Index 36.0 Const General: comfortable and no acute distress Orientation/consciousness: patient oriented x3 Neck Neck: Yes no lymphadenopathy Resp Auscultation: clear to auscultation bilaterally Cardio Rhythm: regular rhythm GI Other: Right inguinal hernia, reducible and prominent with Valsalva Palpation (GI): Soft to palpation, nontender and no guarding Neuro General: patient oriented x3 Assessment & Plan Assessment & Plan (1) Right inguinal hernia: Code(s): K40.90 - Unilateral inguinal hernia, without obstruction or gangrene, not specified as recurrent Plan: He has a reducible right inguinal hernia. I explained him the option of p roceeding with repair. I explained him the technique of repair with mesh. I reviewed the risks including but not limited to bleeding, infections, recurrence, injury to bowel, injury to the vas deferens, chronic pain postoperatively, as well as the benefits and alternatives. I also explained to him what to expect postoperatively He understands and wants to proceed. His brother who speaks good [place]an was with him during the visit. Coding Level of Care Code New Pt Level 3 (56791) Diagnoses Right inguinal hernia K40.90
== END 2023-01-22 14:58 | disposition home or self-care (01) ==
PROVIDERS: PCP Internal Medicine; Visit Provider Surgery
DX: K40.90 Unilateral inguinal hernia, without obstruction or gangrene, not specified as recurrent (principal)
CPT/HCPCS: 99203

== ENCOUNTER → 2023-01-22 14:30 | Outpatient (BNVA) | payer MEDICAID, SELFPAY | PROVIDERS: PCP Internal Medicine; Visit Provider Surgery | DX: K40.90 Unilateral inguinal hernia, without obstruction or gangrene, not specified as recurrent (principal) | CPT/HCPCS: 99202 ==

== ENCOUNTER 2023-02-10 07:59 | Day surgery (SDC) | payer MEDICAID, SELFPAY ==
[2023-02-05 07:33] VITALS: BMI 36.0
[2023-02-10] VITALS (9 sets, daily range): BP systolic 134–157; BP diastolic 75–92; PULSE 52–62; RESP 16; TEMP 36.1–36.6; O2SAT 95–100; BMI 36.0
[2023-02-10 08:49] LABS: Glucose, Whole Blood 114 mg/dL (60-115)
--- NOTE | 2023-02-10 11:19 | MHC.SHP ---
Pre-Procedural Eval Section A Date of Service: 02/10/23 Section B Chief Complaint: Unilateral inguinal hernia, without obstruction or Allergies: Allergies Allergy/AdvReac Type Severity Reaction Status Date / Time No Known Allergies Allergy Verified 02/10/23 08:39 Plan I have reviewed the history and physical and performed a pertinent physical examination on my patient. No changes have occurred unless specified. Time Spent With Patient Time: Total time managing care of this patient today ____ minutes.
[2023-02-10 12:02] LABS: Glucose, Whole Blood 83 mg/dL (60-115)
--- NOTE | 2023-02-10 12:46 | P.CONAN_ITS ---
HPI - Anesthesia Eval Consult details Narrative: inguinal hernia repair PMFSH Active Problems Active Problems: All Active Problems (Updated 01/22/23 @ 15:01 by Pérez Crooks MD) Encounter for screening colonoscopy (Acute) Hemorrhoids (Acute) Osteoarthritis of left knee (Acute) Osteoarthritis of right knee (Acute) Right inguinal hernia (Acute) Chronic back pain (Acute) Hypertension (Acute) Diabetes mellitus (Acute) Acid reflux (Acute) Past Medical History Medical History (Updated 01/22/23 @ 15:01 by Pérez Crooks MD) Acid reflux Chronic back pain Diabetes mellitus Hypertension Right inguinal hernia Family History Family history of problems with anesthesia: No Surgical History Surgical History (Updated 02/10/23 @ 08:42 by Ilda Vidales) H/O colonoscopy H/O endoscopy History of testicular surgery Hx of removal of testicle Hx of varicose vein ligation History of Problems with Anesthesia: No Social History Social History Household Members: Family Alcohol intake: never Patient Tobacco Use Status: Former Tobacco user Quit Date: 2020 Tobacco use type: Cigarette Cigarette Packs Per Day: 1 Cigarettes Per Day: 20.0 Years Smoked: 30 Smoked in Last 30 Days: No Use of substances other than those prescribed or required for medical reasons: No Are you DNR?: No Advance Directives: No Advance Directives Information Provided: Yes Current occupational status: disabled Current occupation: rt hand Meds Allergies Allergy/AdvReac Type Severity Reaction Status Date / Time No Known Allergies Allergy Verified 02/10/23 08:39 Active Medications: Current Medications Lactated Ringer's (Lr) 1,000 mls @ 100 mls/hr IVCONT .Q10H REPLACED BY [facility] Home Medications Medication Instructions Recorded Confirmed Last Taken Type omeprazole 20 mg capsule,delayed 20 mg PO DAILY 10/24/20 02/10/23 Unknown History release cholecalciferol (vitamin D3) 50 50 mcg PO DAILY 01/22/23 02/10/23 Unknown History mcg (2,000 unit) capsule losartan 50 mg tablet 50 mg PO DAILY 01/22/23 02/10/23 02/09/23 History Exam Exam Date and Time: February 10, 2023 1246 Height,Weight and Vital Signs: Height 5 ft 8 in Weight 107.501 kg Last Vital Signs Temp 97.8 F 02/10/23 08:47 Pulse 57 02/10/23 08:47 Resp 16 02/10/23 08:47 BP 149/78 H 02/10/23 08:47 Pulse Ox 98 02/10/23 08:47 O2 Del Method Room Air 02/10/23 08:47 Pertinent Lab Results Pertinent Lab Results: Laboratory Tests 02/10/23 02/10/23 08:46 11:59 POC Glucose 114 83 Airway Mallampati Class: III TM Dist: >3cm Neck ROM: Full Loose/Missing/Broken Teeth: No Heart: rr Lungs: cta Assessment and Plan Assessment Anesthesia Assessment: Anesthesia Plan Discussed Final Anesthetic Review Family History of Problems with Anesthesia: No History of Problems with Anesthesia: No NPO: Yes ASA Class: II Final Preanesthetic Review: No Changes in Pt Med Stat, Meds/Allgs Chart Reviewed, Consent Obtained/Reviewed and Anes Risks/Benef Reviewed Patient Risk: Low Procedure Risk: Low Anesthetic Plan Anesthetic Plan: GA Disposition: Standard PACU
--- NOTE | 2023-02-10 12:52 | P.OP_ITS ---
Operative Note Operative Note Date of Service: 02/10/23 Narrative: Preop diagnosis: Right inguinal hernia Postop diagnosis: Right inguinal hernia, direct Procedure: Repair of a right inguinal hernia with mesh Surgeon: Pérez Crooks MD assistant associate full professor: DIANNA Walker The patient is a 62-year-old male with a reducible mass on the right groin consistent with a right inguinal hernia. He understood the technique of repair with mesh. He was aware of the risks, benefits, and alternatives. He was brought to the operating room and placed supine under general anesthesia via laryngeal mask airway. The right groin was prepped and draped in the usual sterile fashion. A surgical time-out was done. The patient received cefazolin 2 g IV preoperatively I infiltrated my planned line of incision with lidocaine 1%. I made a short incision on the skin along an imaginary line from the anterior superior iliac spine to the pubic ramus. This was carried down with electrocautery through the full-thickness of the skin and subcutaneous fat down to the external oblique apo neurosis. The patient did have significant thickness of his subcutaneous fat. I bluntly dissected the aponeurosis to expose the entire external ring. I opened up the roof of this inguinal canal by making a short incision on the external oblique aponeurosis and sending this incision inferomedially to connect with the external ring. At this time, with enter the inguinal canal. I had applied graspers on the divided edges of the aponeurosis. I bluntly dissected the underside of the aponeurosis to create a pocket for mesh. I identified the spermatic cord and its contents. I was able to pass a [place] drain around this. This [place] drain was used for retraction. I identified the structures of the cord and the vas deferens was. The hernia sac was actually noted to be on the floor of the canal itself and this was consistent with a direct hernia. I this from the rest of the cord contents until this was completely reduced. This hernia was fat containing. I used a medium-sized plug to reinforce this direct hernia defect. I secured the plug to the floor using Prolene 2 sutures through the inner leaves of the plug towards the internal oblique medially and superiorly, as well as the shelving edge of the inguinal ligament laterally. I reinforced the rest of the floor of the canal with a keyhole mesh. The tails of the mesh were passed around the cord at the level of the internal ring and were secured together using Prolene 2-0 sutures. I secured the mesh to the shelving edge of the inguinal meant laterally, the pubic ramus inferomedially as well as the internal oblique superiorly and medially using Prolene 2 sutures. The mesh appeared flat at this time and adequate coverage was noted. I then irrigated. I observed for hemostasis. Once hemostasis was confirmed, I proceeded to then reapposed the divided external oblique aponeurosis using preserved 2-0 sutures to recreate the external ring. The thick subcutaneous layer was reapposed with Polysorb 3-0 simple interrupted sutures. Skin closure was achieved with pulse of 4-0 subcuticular running sutures. Steri-Strips and dressings were applied. The area of the incision was infiltrated with Marcaine 0.5% for postop analgesia and the procedure was completed The patient tolerated procedure well. There were no immediate complications. Initial and final counts of sponges and instruments were correct. Estimated blood loss was about 20 cc The patient was extubated without difficulty and transferred to the recovery room with stable vital signs.
[2023-02-10] MEDS: oxyCODONE HCl Immed Release 5 MG TABLET PO (14:13)
[2023-02-10] MEDS: Acetaminophen 325 MG TABLET 650 MG PO (14:15)
== END 2023-02-10 15:07 | disposition home or self-care (01) ==
PROVIDERS: PCP Internal Medicine; Visit Provider Surgery
PROC: (CPT 49505; principal; 2023-02-10 10:20)
DX: K40.90 Unilateral inguinal hernia, without obstruction or gangrene, not specified as recurrent (principal); K21.9 Gastro-esophageal reflux disease without esophagitis; M54.9 Dorsalgia, unspecified; G89.29 Other chronic pain; I10 Essential (primary) hypertension; E11.9 Type 2 diabetes mellitus without complications; Z79.899 Other long term (current) drug therapy; Z87.891 Personal history of nicotine dependence
CPT/HCPCS: 49505; 82947; C1781; J0690; J1100; J1885; J2250; J2405; J2795; J3010

== ENCOUNTER → 2023-02-10 07:59 | Outpatient (BNV) | payer MEDICAID, SELFPAY | PROVIDERS: PCP Internal Medicine; Visit Provider Surgery | DX: K40.90 Unilateral inguinal hernia, without obstruction or gangrene, not specified as recurrent (principal) | CPT/HCPCS: 49505 ==

== ENCOUNTER 2023-02-19 14:38 | Outpatient (AMB) | payer MEDICAID, SELFPAY ==
--- NOTE | 2023-02-19 14:43 | MHC.OFFVIS ---
Intake Vital Signs 02/19/23 14:50 Weight 234 lb BP 109/71 Blood Pressure Location Rt brachial Position Sitting Pulse 67 Intake Visit Reasons: S/P RIH w/mesh Intake Note: This patient presents for a post-op assessment status post right inguinal hernia repair with mesh. Patient c/o; reports no changes or complaints at this time pertaining to surgery. Manager Cardiac Cath Required: Yes Manager Cardiac Cath Language: Court Messenger Name: Patient declined ostomy nurse Information Interpreted: non-clinical & clinical Accompanied by: Other Relationship Allergies No Known Allergies Allergy (Verified 02/19/23 14:51) HPI S/P RIH w/mesh HPI Details He had undergone repair of right inguinal hernia with mesh last 02/10/2023. He says he feels well overall. He denies any GI complaints. [facility] Medical History Acid reflux Chronic back pain Diabetes mellitus Hypertension Right inguinal hernia Surgical History H/O colonoscopy H/O endoscopy History of right inguinal hernia repair (~02/10/23) History of testicular surgery Hx of removal of testicle Hx of varicose vein ligation Social History Household Members: Family Alcohol intake: never Patient Tobacco Use Status: Former Tobacco user Quit Date: 2020 Tobacco use type: Cigarette Cigarette Packs Per Day: 1 Cigarettes Per Day: 20.0 Years Smoked: 30 Current occupational status: disabled Current occupation: rt hand Review of Systems Const Denies chills and Denies fever(s) Card Denies chest pain, Denies dyspnea and Denies dyspnea on exertion Resp Denies cough, Denies dyspnea and Denies dyspnea on exertion GI Denies hematochezia and Denies change in bowel habits Denies hematuria and Denies difficulty urinating Musc Denies back pain and Denies limited range of motion Neuro Denies focal weakness and Denies convulsions Psych Denies depression and Denies mood swings Physical Exam Vital Signs: Last Vital Signs Pulse 67 02/19/23 14:50 BP 109/71 02/19/23 14:50 Const Other: Ambulating looks well General: comfortable and no acute distress Resp Effort & Inspection: normal respiratory effort Cardio Rate: regular rate GI Other: Right inguinal hernia repair site well healed, with some ecchymosis and edema otherwise nontender, no discharge, no infection Palpation (GI): Soft to palpation and not firm Assessment & Plan Assessment & Plan (1) Right inguinal hernia: Code(s): K40.90 - Unilateral inguinal hernia, without obstruction or gangrene, not specified as recurrent Plan: Status post repair with mesh. He is doing very well. His incision is well healed. He does have some ecchymosis and edema but I told him that this should resolve with time. I emphasized to him to not lift anything more than 20 lb for at least another month. He cannot come back to the office or call if he has any concerns. Coding Level of Care Code Global (14424) Diagnoses Right inguinal hernia K40.90
[2023-02-19 14:50] VITALS: BP 109/71; PULSE 67
== END 2023-02-19 15:10 | disposition home or self-care (01) ==
PROVIDERS: PCP Internal Medicine; Visit Provider Surgery
DX: K40.90 Unilateral inguinal hernia, without obstruction or gangrene, not specified as recurrent (principal)
CPT/HCPCS: 99024

== ENCOUNTER → 2023-02-19 14:38 | Outpatient (BNVA) | payer MEDICAID, SELFPAY | PROVIDERS: PCP Internal Medicine; Visit Provider Surgery ==